=== PATIENT | female | born 1965 | race Caucasian/White ===

== ENCOUNTER 2019-10-14 18:41 | Emergency (ER) | payer OTHER ==
[~2019-10-14] VITALS: Ht 170.2 cm; Wt 70.5 kg
[2019-10-14 18:50] VITALS: Ht 170.2 cm; Wt 70.5 kg
[2019-10-14 19:45] LABS: BASOPHILS 0.3 % (0-2); EOSINOPHILS 2.1 % (0-7); HEMOGLOBIN 13.5 g/dL (12-16); IMMATURE GRANULOCYTES 0.2 % (0-5); LYMPHOCYTES 16.7 % (15-50); MCHC 32.1 g/dL (31.0-37.0); MCV 96.3 fL (80.0-100.0); MEAN PLATELET VOLUME 9.3 fL (7.4-10.4); MONOCYTES 5.8 % (2-11); NEUTROPHILS 74.9 % (40-80); PLATELET COUNT 248 10x3/uL (130-400); RBC 4.36 10x6/uL (4.00-5.40); RDW 12.8 % (11.5-14.5); WBC 12.2 10x3/uL (4.8-10.8)
[2019-10-14 19:57] LABS: ANION GAP 11.4 mmol/L (8-16); CALCIUM 8.8 mg/dL (8.5-10.1); CARBON DIOXIDE 29.2 mmol/L (21.0-32.0); CREATININE - SERUM 1.1 mg/dL (0.6-1.3); POTASSIUM - SERUM 3.6 mmol/L (3.5-5.1)
[2019-10-14 20:02] LABS: ALBUMIN 4.1 g/dL (3.4-5.0); BILIRUBIN - TOTAL 0.48 mg/dL (0.2-1.3); PROTEIN - SERUM 7.3 g/dL (6.4-8.2)
[2019-10-14 20:10] LABS: INR 0.92 (0.85-1.17); PROTIME 12.3 SECONDS (11.6-15.0)
[2019-10-14] MEDS ORDERED: KEFLEX500 MG PO (20:13)
[2019-10-14] MEDS ORDERED: HYDROCODON-ACE1 EAC7 PO (20:25)
[2019-10-14 21:13] VITALS: BP 142/98
== END 2019-10-14 22:04 | disposition home or self-care (01) ==
LOC: D.ER 18:41
PROVIDERS: Family Medicine
DX: S20.219A Contusion of unspecified front wall of thorax, initial encounter (principal); S09.90XA Unspecified injury of head, initial encounter; S01.81XA Laceration without foreign body of other part of head, initial encounter; R91.1 Solitary pulmonary nodule; D72.829 Elevated white blood cell count, unspecified; W19.XXXA Unspecified fall, initial encounter; Y93.9 Activity, unspecified; Y92.9 Unspecified place or not applicable; M54.2 Cervicalgia